=== PATIENT | female | born 1955 | race Caucasian/White ===

== ENCOUNTER → 2019-07-16 | Outpatient (CLI) | payer BC | LOC: MC.RAD 14:06 | DX: Z12.31 Encounter for screening mammogram for malignant neoplasm of breast (principal) ==

== ENCOUNTER → 2021-09-16 | Outpatient (CLI) | payer MEDICARE | LOC: MC.RAD 10:14 | DX: Z12.31 Encounter for screening mammogram for malignant neoplasm of breast (principal) ==

== ENCOUNTER → 2023-01-20 | Outpatient (CLI) | payer MEDICARE | LOC: MC.RAD 09:04 | DX: Z12.31 Encounter for screening mammogram for malignant neoplasm of breast (principal) ==

== ENCOUNTER 2024-01-06 10:45 | Outpatient (CLI) | payer MEDICARE ==
[~2024-01-06] VITALS: Ht 154.9 cm; Wt 51.7 kg
[2024-01-06] MEDS ORDERED: Romosozumab-aqqg 210 MG/2.34 ML 2-Syringe KIT SQ ONE (11:15)
== END 2024-01-06 11:45 | disposition home or self-care (01) ==
LOC: EUO 10:45
DX: M81.0 Age-related osteoporosis without current pathological fracture (principal)
CPT/HCPCS: J3111

== ENCOUNTER → 2024-03-21 | Outpatient (CLI) | payer MEDICARE ==
[~2024-03-21] MED LIST: PRILOSEC 20MG20 MG PO
== END ==
LOC: MC.RAD 07:32
DX: Z12.31 Encounter for screening mammogram for malignant neoplasm of breast (principal)

== ENCOUNTER 2024-06-05 12:51 | Outpatient (CLI) | payer MEDICARE ==
[~2024-06-05] VITALS: Ht 154.9 cm; Wt 55.0 kg
[2024-06-05 13:12] VITALS: BP 91/59; PULSE 63; TEMP 97.9
[2024-06-05] MEDS ORDERED: Romosozumab-aqqg 210 MG/2.34 ML 2-Syringe KIT SQ ONE (13:15)
== END 2024-06-05 14:26 ==
LOC: EUO 12:51
DX: M81.0 Age-related osteoporosis without current pathological fracture (principal)
CPT/HCPCS: J3111

== ENCOUNTER 2024-09-04 15:22 | Outpatient (CLI) | payer MEDICARE ==
[~2024-09-04] VITALS: Ht 154.9 cm; Wt 57.0 kg
[~2024-09-04 15:22] MED LIST changes: +Romosozumab-aqqg 210 MG/2.34 ML 2-Syringe KIT SQ ONE
[2024-09-04 15:38] VITALS: BP 100/65; PULSE 64; TEMP 97.5
== END 2024-09-04 15:30 | disposition home or self-care (01) ==
LOC: EUO 15:22
DX: M81.0 Age-related osteoporosis without current pathological fracture (principal)
CPT/HCPCS: J3111

== ENCOUNTER 2024-10-02 15:04 | Outpatient (CLI) | payer MEDICARE ==
[~2024-10-02] VITALS: Ht 154.9 cm; Wt 58.2 kg
[~2024-10-02 15:04] MED LIST changes: -Romosozumab-aqqg 210 MG/2.34 ML 2-Syringe KIT SQ ONE
[2024-10-02 15:29] VITALS: BP 98/66; PULSE 72; TEMP 98
[2024-10-02] MEDS ORDERED: Romosozumab-aqqg 210 MG/2.34 ML 2-Syringe KIT SQ ONE (15:30)
== END 2024-10-02 15:38 | disposition home or self-care (01) ==
LOC: EUO 15:04
DX: M81.0 Age-related osteoporosis without current pathological fracture (principal)
CPT/HCPCS: J3111